=== PATIENT | female | born 1990 | race Caucasian/White ===

== ENCOUNTER 2021-05-10 22:18 | Emergency (ER) | payer OTHER ==
[2021-05-10 22:25] VITALS: BP 111/74; PULSE 95; TEMP 98; BMI 30.2
== END 2021-05-10 22:37 | disposition home or self-care (01) ==
LOC: FER 22:18
DX: F10.920 Alcohol use, unspecified with intoxication, uncomplicated (principal)
CPT/HCPCS: 99281-25